=== PATIENT | male | born 1985 | race Caucasian/White ===

== ENCOUNTER 2016-07-28 11:31 | Observation (INO) | payer MEDICAID, SELFPAY ==
[2016-07-28] VITALS (7 sets, daily range): BP systolic 106–126; BP diastolic 51–81; PULSE 50–69; RESP 16–20; TEMP 36.7–36.9; O2SAT 94–99; BMI 23.1; BMI 23.2
--- NOTE | 2016-07-28 12:25 | PCM.HP.STD ---
Problem List (1) Tobacco use Status: Chronic (2) ETOH abuse Status: Chronic (3) Heroin abuse Status: Chronic History of Present Illness Date of Admission: 07/28/16 Chief Complaint: Acute opiate withdrawal. The patient is a 30 y/o M w/ PMHx: Tobacco use, History of EtOH abuse, History of Trauma [place] prior s/p R THR who presents to the [facility] on 07/28/16 w/ noted opiate withdrawal onset starting 07/28/16 AM following last dose 07/27/16 9:00 am with abdominal pain/cramping, generalized body aches and pains, rhinorrhea, piloerection, fatigue, restless leg, sweating, yawning. Patient interested in attaining clean status. He notes having prior to this been clean x 6 months. He notes the suboxone program he had been in was shut down so within 2 days his withdrawal was severe enough to cause him to start heroine again. He notes he had used prior to his injury but been clean following as well but usage of narcotic pain medications started him again on usage pathway. Past Medical History Past Medical History (Chronic Problems): Chronic Problems ETOH abuse (Chronic) Heroin abuse (Chronic) Tobacco use (Chronic) Allergies No Known Allergies Allergy (Verified 03/05/14 10:29) Home Medications: Ambulatory Orders Medication Instructions Recorded No Known/Unobtainable [No Known 07/28/16 Home Medications] Surgical History: - - s/p trauma with sports (motor cross) with R THR. Psychiatric History: No pertinent psych hx Lives: With Family - Lives with his parents. Smoking Status: Current every day smoker - 1 ppd. Tobacco Use: Cigarettes Alcohol: None Drugs: Heroin - *Family History Maternal History Items: No pertinent history Paternal History Items: No pertinent history Review of Systems Constitutional: Reports: Chills, Malaise, Weakness, Fatigue. Denies: Fever, Weight Change HEENT: Denies: Head Aches, Sinus Congestion, Sinus Drainage Cardiovascular: Denies: Chest Pain, Palpitations Respiratory: Denies: Cough, Shortness of breath at rest, Sputum production Gastrointestinal: Reports: Abdominal Pain, Nausea. Denies: Vomiting Genitourinary: Denies: Dysuria Musculoskeletal: Reports: Back Pain, Muscle pain. Denies: Joint Pain, Joint Tenderness Skin: Denies: Rash, Wounds Neurological: Denies: Numbness, Tingling, Focal weakness Psychiatric: Denies: Anxiety, Depression, Homicidal Ideations, Suicidal Ideations Hematologic/ Lymphatic: Denies: Easy Bruising, Easy Bleeding VTE Information - Inpt Only VTE Present on Admission: No VTE Mechan Device Prophylaxis: SCD's VTE Pharm Prophylaxis ordered?: No Reason prophylaxis not ordered:: Treatment Not Indicated Subjective: Seated upright in the bed, notes currently feeling improved s/p 1st suboxone. Objective: Physical Examination: General: awake, alert, oriented x 3 and cooperative, seated upright in bed, symptoms abating status post recent for Suboxone administration. Skin: normal color, turgor, no icterus, cyanosis track vázquez, most recently used site noninfected appearing. HEENT: AT/NC, EOMI, PERRLA, dry MM, no carotid bruits or JVD noted. Lungs: CTA bilaterally, moderate effort, mild decrease BL bases, no rales, ronchi or wheezing. Heart: Regular rate and rhythm; no gallop, rub audible. Abdomen: soft, NTTP, ND, normal BS, + HM. Extremities: no cyanosis, clubbing, or edema. Neurological: patient awake, alert, oriented x 3; cognitive function intact; pupils equally reactive to light and accomodation; cranial nerves II-XII grossly normal, moving all 4 extremities, no focal deficits, strength globally decreased secondary to acute withdrawal. Psychiatric: affect appears mildly anxious, no acute evidence of depressive feelings. - Physical Exam Vital Signs Temp Pulse Resp BP Pulse Ox 98.5 F 50 20 106/62 97 07/28/16 12:06 07/28/16 12:06 07/28/16 12:06 07/28/16 12:06 07/28/16 12:06 Oxygen Delivery Method Room Air Weight: 161 lb 6.054 oz Body Mass Index (BMI) 23.1 Assessment/Plan The patient is a 30 y/o M w/ PMHx: Tobacco use, History of EtOH abuse, History of Trauma [place] prior s/p R THR who presents to the [facility] on 07/28/16 w/ noted opiate withdrawal onset starting 07/28/16 AM following last dose 07/27/16 9:00 am. (1) Acute Opiate Withdrawal: Will admit to [place], obtain routine labs including CBC, CMP, urine for drug screen, urinalysis, serum lipase, routine EKG, will initiate and continue on [facility] service protocol with tapering course of Subutex, as needed Seroquel, Librium, Sinemet, Catapres, Bentyl, Vistaril, IV fluids, IV antiemetics, Tylenol as needed for pain. Once patient clinically improved and completion of taper nearing will plan [facility] assistance for transition to next level of rehabilitation care. HIV, hepatitis pending as not performed prior. (2) Tobacco Abuse: Encouraged cessation, inpatient consultation per RT, NR if desired. (3) EtOH Abuse: Patient notes routine consumption of 3-4 glasses whiskey per day when drinking, currently sober x 1 month he notes. Will maintain on MVI, thiamine and folic acid. Encouraged continued safe sobriety. Will to be cautious place on CIWA in case EtOH sobriety overestimated. CMP pending. Mag, phos pending. (4) DVT Prophylaxis: SCDs, low risk, ambulation.
--- NOTE | 2016-07-28 12:29 | HP.PCM_ITS ---
Problem List (1) Tobacco use Status: Chronic (2) ETOH abuse Status: Chronic (3) Heroin abuse Status: Chronic History of Present Illness Date of Admission: 07/28/16 Chief Complaint: Acute opiate withdrawal. The patient is a 30 y/o M w/ PMHx: Tobacco use, History of EtOH abuse, History of Trauma [place] prior s/p R THR who presents to the [facility] on 07/28/16 w/ noted opiate withdrawal onset starting 07/28/16 AM following last dose 07/27/16 9: 00 am with abdominal pain/cramping, generalized body aches and pains, rhinorrhea , piloerection, fatigue, restless leg, sweating, yawning. Patient interested in attaining clean status. He notes having prior to this been clean x 6 months. He notes the suboxone program he had been in was shut down so within 2 days his withdrawal was severe enough to cause him to start heroine again. He notes he had used prior to his injury but been clean following as well but usage of narcotic pain medications started him again on usage pathway. Past Medical History Past Medical History (Chronic Problems): Chronic Problems ETOH abuse (Chronic) Heroin abuse (Chronic) Tobacco use (Chronic) Allergies No Known Allergies Allergy (Verified 03/05/14 10:29) Home Medications: Ambulatory Orders Medication Instructions Recorded No Known/Unobtainable [No Known 07/28/16 Home Medications] Surgical History: - - s/p trauma with sports (motor cross) with R THR. Psychiatric History: No pertinent psych hx Lives: With Family - Lives with his parents. Smoking Status: Current every day smoker - 1 ppd. Tobacco Use: Cigarettes Alcohol: None Drugs: Heroin - *Family History Maternal History Items: No pertinent history Paternal History Items: No pertinent history Review of Systems Constitutional: Reports: Chills, Malaise, Weakness, Fatigue. Denies: Fever, Weight Change HEENT: Denies: Head Aches, Sinus Congestion, Sinus Drainage Cardiovascular: Denies: Chest Pain, Palpitations Respiratory: Denies: Cough, Shortness of breath at rest, Sputum production Gastrointestinal: Reports: Abdominal Pain, Nausea. Denies: Vomiting Genitourinary: Denies: Dysuria Musculoskeletal: Reports: Back Pain, Muscle pain. Denies: Joint Pain, Joint Tenderness Skin: Denies: Rash, Wounds Neurological: Denies: Numbness, Tingling, Focal weakness Psychiatric: Denies: Anxiety, Depression, Homicidal Ideations, Suicidal Ideations Hematologic/ Lymphatic: Denies: Easy Bruising, Easy Bleeding VTE Information - Inpt Only VTE Present on Admission: No VTE Mechan Device Prophylaxis: SCD's VTE Pharm Prophylaxis ordered?: No Reason prophylaxis not ordered:: Treatment Not Indicated Subjective: Seated upright in the bed, notes currently feeling improved s/p 1st suboxone. Objective: Physical Examination: General: awake, alert, oriented x 3 and cooperative, seated upright in bed, symptoms abating status post recent for Suboxone administration. Skin: normal color, turgor, no icterus, cyanosis track vázquez, most recently used site noninfected appearing. HEENT: AT/NC, EOMI, PERRLA, dry MM, no carotid bruits or JVD noted. Lungs: CTA bilaterally, moderate effort, mild decrease BL bases, no rales, ronchi or wheezing. Heart: Regular rate and rhythm; no gallop, rub audible. Abdomen: soft, NTTP, ND, normal BS, + HM. Extremities: no cyanosis, clubbing, or edema. Neurological: patient awake, alert, oriented x 3; cognitive function intact; pupils equally reactive to light and accomodation; cranial nerves II-XII grossly normal, moving all 4 extremities, no focal deficits, strength globally decreased secondary to acute withdrawal. Psychiatric: affect appears mildly anxious, no acute evidence of depressive feelings. - Physical Exam Vital Signs Temp Pulse Resp BP Pulse Ox 98.5 F 50 20 106/62 97 07/28/16 12:06 07/28/16 12:06 07/28/16 12:06 07/28/16 12:06 07/28/16 12:06 Oxygen Delivery Method Room Air Weight: 161 lb 6.054 oz Body Mass Index (BMI) 23.1 Assessment/Plan The patient is a 30 y/o M w/ PMHx: Tobacco use, History of EtOH abuse, History of Trauma [place] prior s/p R THR who presents to the [facility] on 07/28/16 w/ noted opiate withdrawal onset starting 07/28/16 AM following last dose 07/27/16 9: 00 am. (1) Acute Opiate Withdrawal: Will admit to [place], obtain routine labs including CBC , CMP, urine for drug screen, urinalysis, serum lipase, routine EKG, will initiate and continue on [facility] service protocol with tapering course of Subutex, as needed Seroquel, Librium, Sinemet, Catapres, Bentyl, Vistaril, IV fluids, IV antiemetics, Tylenol as needed for pain. Once patient clinically improved and completion of taper nearing will plan [facility] assistance for transition to next level of rehabilitation care. HIV, hepatitis pending as not performed prior. (2) Tobacco Abuse: Encouraged cessation, inpatient consultation per RT, NR if desired. (3) EtOH Abuse: Patient notes routine consumption of 3-4 glasses whiskey per day when drinking, currently sober x 1 month he notes. Will maintain on MVI, thiamine and folic acid. Encouraged continued safe sobriety. Will to be cautious place on CIWA in case EtOH sobriety overestimated. CMP pending. Mag, phos pending. (4) DVT Prophylaxis: SCDs, low risk, ambulation.
[2016-07-28] MEDS: Ibuprofen 400 MG Tablet 800 MG PO (12:56)
[2016-07-28] MEDS: 0.9% Normal Saline 1,000 ML 125 ML IV (13:02)
[2016-07-28 13:09] LABS: Absolute Lymphocyte Count 1.42 X10^3/ul (0.83-4.51); Absolute Neutrophil Count 7.2 X10^3/uL (2.0-7.7); Basophil# 0.01 X10^3/uL; Basophil% 0.1 % (0-1); Eosinophil# 0.04 X10^3/uL; Eosinophils% 0.4 % (0-5); Hematocrit 44.7 % (40-54); Hemoglobin 15.3 g/dl (13.0-16.5); Lymphocyte # 1.42 X10^3/ul (4.0); Lymphocyte % 15.9 % (19-41); Mean Corp Hgb Conc 34.2 g/gl (32-36); Mean Corpuscular Hgb 30.7 pg (27.0-32.0); Mean Corpuscular Volume 89.8 fL (80-94); Mean Platelet Vol. 8.7 fl (6.2-12.0); Monocyte# 0.25 X10^3/uL; Monocyte% 2.8 % (0-10); Neutrophil % 80.7 % (47-70); POSITIVE COUNT NO; POSITIVE DIFFERENTIAL NO; POSITIVE MORPHOLOGY NO; Platelet Count 270 K/mm3 (150-450); RBC Distribution Width CV 13.2 % (11.6-14.6); RBC Distribution Width SD 43.2 fl (35.1-43.9); Red Blood Count 4.98 M/mm3 (4.6-6.2); White Blood Count 8.9 K/mm3 (4.4-11.0)
[2016-07-28] MEDS: Buprenorphine HCl 2 MG TAB.SUBL SL ×2 (13:10→20:34)
[2016-07-28 13:17] LABS: ALB/GLOB Ratio 0.8 RATIO (0.9-2.4); AST(SGOT) 62 U/L (15-37); Alanine Aminotransfer ALT/SGPT 154 U/L (12-78); Albumin, Serum 3.8 g/dL (3.4-5.0); Alkaline Phosphatase 82 U/L (45-117); Anion Gap 8 (5-15); BUN 12 mg/dL (7-18); BUN/Creat Ratio 15.7 RATIO (10-20); Calcium,Total 9.2 mg/dL (8.5-10.1); Chloride 104 mmol/L (98-107); Creatinine, Serum 0.76 mg/dL (0.70-1.30); EST Glomerular Filtration Rate 127 mL/min (>60); Est Glom Filt Rate - Afr Amer 153 mL/min (>60); Estimated Creatinine Clearance 146.75 ml/min; Globulin 4.5 g/dL (2.3-3.5); Glucose 108 mg/dL (70-110); Potassium 4.2 mmol/L (3.5-5.1); Protein, Total 8.3 g/dL (6.4-8.2); Sodium Level 136 mmol/L (136-145)
[2016-07-28 13:37] LABS: Alcohol, Blood (Medical)-Serum < 3.0 mg/dL
[2016-07-28 13:57] LABS: Magnesium 2.1 mg/dL (1.8-2.4); Phosphorus 2.3 mg/dL (2.5-4.9)
[2016-07-28 14:06] LABS: Amphetamine Urine VISTA NEGATIVE (<1000 ng/mL); Barbiturate Urine VISTA NEGATIVE (< 200 ng/mL); Benzodiazepine Urine VISTA NEGATIVE (< 200 ng/mL); Cocaine Urine VISTA NEGATIVE (< 300 ng/mL); Ecstacy Urine VISTA NEGATIVE (< 500 ng/mL); Methadone Urine VISTA NEGATIVE (< 300 ng/mL); PCP Urine VISTA NEGATIVE (< 25 ng/mL); THC Urine VISTA POSITIVE (< 50 ng/mL); Vista UDS pH Range 7
[2016-07-28] MEDS: Carbidopa/Levodopa 25/100 Tablet PO (14:29)
[2016-07-28] MEDS: chlordiazePOXIDE 25 MG Capsule PO ×3 (14:29→20:57)
[2016-07-28] MEDS: 0.9% NaCl Peripheral Flush Adult/Peds IV (14:30)
[2016-07-28] MEDS: LORazepam 2 MG/ML Syringe IV (14:30)
[2016-07-28] MEDS: Methocarbamol 750 MG Tablet PO (14:30)
[2016-07-28] MEDS: Ondansetron ODT 4 MG Tablet PO (14:30)
--- NOTE | 2016-07-28 15:43 | CHAPLAIN ---
patient was recently admitted and getting settled into room and prepared for medications; pt is welcoming and identifies why he is here and that he has 'done this before'; pt is aware of medical stabilization routine; pt reports that he has lots of support from family and friends and that he goes to [facility] each Monday; pt says that he receives good help from these resources but struggles still with addiction; pt says that he is feeling warm and having a hard time talking now due to a dry mouth; pt is open to visits in the future
[2016-07-28] MEDS: Acetaminophen 325 MG Tablet 650 MG PO (15:54)
[2016-07-28] MEDS: traZODone 50 MG Tablet PO (20:57)
[2016-07-28] MEDS: LORazepam 1 MG Tablet 2 MG PO (20:57)
[2016-07-29] MEDS: QUEtiapine 25 MG Tablet PO (00:06)
[2016-07-29] MEDS: Carbidopa/Levodopa 25/100 Tablet PO ×2 (00:06→16:53)
[2016-07-29 02:13] VITALS: BP 116/68; PULSE 47; RESP 16; TEMP 36.7
[2016-07-29] MEDS: chlordiazePOXIDE 25 MG Capsule PO ×3 (02:16→10:08)
[2016-07-29] MEDS: Methocarbamol 750 MG Tablet PO ×3 (02:21→16:53)
[2016-07-29] MEDS: cloNIDine HCl 0.1 MG Tablet PO (02:21)
[2016-07-29] MEDS: Buprenorphine HCl 2 MG TAB.SUBL SL ×3 (04:18→20:16)
--- NOTE | 2016-07-29 06:46 | PCM.PN.HOSP ---
Subjective: Patient overnight with no acute events however did note difficulty sleeping and does admit now to cannabis usage each night for sleep. Discussed option and amenable to increasing trazodone nightly as needed dose to assist with this. He notes other symptoms are currently controlled and eager to continue with clean status. Patient denies fevers, chills, nausea, emesis, abdominal pain, chest pain or dyspnea. Objective: Physical Examination: General: awake, alert, oriented x 3 and cooperative, seated upright in bed, NAD. Skin: normal color, turgor, no icterus, cyanosis track vázquez, most recently used site noninfected appearing. HEENT: AT/NC, EOMI, PERRLA, improved MMM. Lungs: CTA bilaterally, moderate effort, mild decrease BL bases, no rales, ronchi or wheezing. Heart: Regular rate and rhythm; no gallop, rub audible. Abdomen: soft, NTTP, ND, normal BS. Extremities: no cyanosis, clubbing, or edema. Neurological: patient awake, alert, oriented x 3; cognitive function intact; pupils equally reactive to light and accomodation; cranial nerves II-XII grossly normal, moving all 4 extremities, no focal deficits, strength mildly globally decreased secondary to acute withdrawal. Psychiatric: affect appears improved, calm, no acute evidence of depressive feelings. Vitals/I&O's: Vital Signs Temp Pulse Resp BP Pulse Ox 98.0 F 47 16 116/68 99 07/29/16 02:13 07/29/16 02:13 07/29/16 02:13 07/29/16 02:13 07/28/16 20:36 Oxygen Delivery Method Room Air Weight: 161 lb 6.054 oz Body Mass Index (BMI) 23.1 Intake and Output for Last 24 Hours 07/27/16 07/28/16 07/29/16 23:59 23:59 23:59 Intake Total 1157 1488 Output Total 400 Balance 1157 1088 Laboratory Results 07/28/16 12:40: Urine Opiates Screen POSITIVE H, Urine Methadone Screen NEGATIVE, Ur Barbiturates Screen NEGATIVE, Ur Phencyclidine Scrn NEGATIVE, Ur Amphetamines Screen NEGATIVE, U Methamphetamin-MDMA NEGATIVE, U Benzodiazepines Scrn NEGATIVE, Urine Cocaine Screen NEGATIVE, U Cannabinoids Screen POSITIVE H, Ur Drug Screen Comment 07/28/16 12:45: WBC 8.9, RBC 4.98, Hgb 15.3, Hct 44.7, MCV 89.8, MCH 30.7, MCHC 34.2, RDW 13.2, RDW Differential 43.2, Plt Count 270, MPV 8.7, Immature Gran % (Auto) 0.100, Neut % (Auto) 80.7 H, Lymph % (Auto) 15.9 L, [place] % (Auto) 2.8, Eos % (Auto) 0.4, Baso % (Auto) 0.1, Absolute Neuts (auto) 7.2, Absolute Lymphs (auto) 1.42, Total Counted Not Reportable 07/28/16 12:45: Sodium 136, Potassium 4.2, Chloride 104, Carbon Dioxide 24.0, Anion Gap 8, BUN 12, Creatinine 0.76, Estim Creat Clear Calc 146.75, Est GFR (MDRD) Af Amer 153, Est GFR (MDRD) Non-Af 127, BUN/Creatinine Ratio 15.7, Glucose 108, Calcium 9.2, Total Bilirubin 0.50, AST 62 H, ALT 154 H, Alkaline Phosphatase 82, Total Protein 8.3 H, Albumin 3.8, Globulin 4.5 H, Albumin/Globulin Ratio 0.8 L 07/28/16 12:45: Ethyl Alcohol < 3.0 07/28/16 12:45: Hepatitis A IgM Ab Pending, Hepatitis A Ab Total Pending, Hep Bs Antigen Pending, Hep B Core Total Ab Pending, Hep B Core IgM Ab Pending, Hepatitis C Comment Pending, HIV 1&2 Ag/Ab, 4th Gen Pending 07/28/16 12:45: Phosphorus 2.3 L, Magnesium 2.1 Current Medications Acetaminophen (Tylenol) 650 mg PO Q4H PRN PRN PRN Reason: Temp>99.1F Last Admin: 07/28/16 15:54 Dose: 650 mg Al Hydroxide/Mg Hydroxide (Mylanta Ii) 30 ml PO Q6H PRN PRN PRN Reason: dyspesia Bisacodyl (Dulcolax) 10 mg RECTAL DAILY PRN PRN Reason: Constipation Buprenorphine HCl (Buprenorphine Hcl) 4 mg SL Q8H SANDRA PRN Reason: Taper Stop: 07/31/16 16:29 Last Admin: 07/29/16 04:18 Dose: 4 mg Carbidopa/Levodopa (Sinemet) 1 tablet PO Q8H PRN PRN PRN Reason: RESTLESSNESS Last Admin: 07/29/16 00:06 Dose: 1 tablet Chlordiazepoxide (Librium) 25 mg PO Q4 SANDRA Stop: 07/29/16 10:01 Last Admin: 07/29/16 05:22 Dose: 25 mg Chlordiazepoxide (Librium) 25 mg PO Q6H PRN PRN PRN Reason: Mod-Sev Anxiety (score 2-3/3) Clonidine (Catapres) 0.1 mg PO Q2H PRN PRN Reason: Hot/Cold Sweats or Anxiety Last Admin: 07/29/16 02:21 Dose: 0.1 mg Dicyclomine HCl (Bentyl) 20 mg PO Q6H PRN PRN PRN Reason: Abdomnial Discomfort Folic Acid (Folic Acid) 1 mg PO DAILY@0800 [facility] Hydroxyzine Pamoate (Vistaril) 50 mg PO Q6H PRN PRN PRN Reason: Mild Anxiety (score 1/3) Ibuprofen (Motrin) 800 mg PO Q8H PRN PRN PRN Reason: Mild-Moderate Pain (1-5/10) Last Admin: 07/28/16 12:56 Dose: 800 mg Loperamide HCl (Imodium) 2 - 4 mg PO UD PRN PRN Reason: LOOSE STOOLS Lorazepam (Ativan) 2 mg PO Q2H PRN PRN; Protocol PRN Reason: CIWA score > 8 but <15 Last Admin: 07/28/16 20:57 Dose: 2 mg Lorazepam (Ativan) 2 mg PO UD PRN; Protocol PRN Reason: CIWA score >/=15. Lorazepam (Ativan) 2 mg IV Q2H PRN PRN; Protocol PRN Reason: CIWA score > 8 but <15 Last Admin: 07/28/16 14:30 Dose: 2 mg Lorazepam (Ativan) 2 mg IV UD PRN; Protocol PRN Reason: CIWA score >/=15. Methocarbamol (Methocarbamol) 750 mg PO 4X/DAY PRN PRN Reason: Muscle Aches Last Admin: 07/29/16 02:21 Dose: 750 mg Multivitamins/Minerals (Multivitamin With Minerals) [facility] Nicotine (Nicoderm Cq (Pbkc)) 21 mg TRANSDERM. DAILY SANDRA Ondansetron HCl (Zofran Odt) 4 mg PO Q6H PRN PRN PRN Reason: NAUSEA Last Admin: 07/28/16 14:30 Dose: 4 mg Quetiapine Fumarate (Seroquel) 25 mg PO Q6H PRN PRN PRN Reason: Moderate Anxiety (score 2/3) Last Admin: 07/29/16 00:06 Dose: 25 mg Senna (Senokot) 1 tablet PO QHS PRN PRN Reason: Constipation Sodium Chloride () 5 - 15 ml IV UD PRN PRN Reason: SALINE FLUSH Last Admin: 07/28/16 14:30 Dose: 10 ml Thiamine HCl (Vitamin B1) 100 mg PO DAILYCM SANDRA Trazodone HCl (Desyrel) 50 mg PO QHS SANDRA Last Admin: 07/28/16 20:57 Dose: 50 mg Assessment/Plan The patient is a 30 y/o M w/ PMHx: Tobacco use, History of EtOH abuse, History of Trauma [place] prior s/p R THR who presents to the [facility] on 07/28/16 w/ noted opiate withdrawal onset starting 07/28/16 AM following last dose 07/27/16 9:00 am. (1) Acute Opiate Withdrawal: Admitted to [place], obtained routine labs w/ remarkable noted CMP w/ AST/ALT 62/154, UDS + opiates and cannabis, EtOH <3. Patient initiated and continue on [facility] service protocol with tapering course of Subutex, as needed Seroquel, Librium, Sinemet, Catapres, Bentyl, Vistaril, IV fluids, IV antiemetics, Tylenol as needed for pain. Once patient clinically improved and completion of taper nearing will plan [facility] assistance for transition to next level of rehabilitation care. HIV, hepatitis pending as not performed prior. (2) Tobacco Abuse: Encouraged cessation, inpatient consultation per RT, NR if desired. (3) EtOH Abuse, Polysubstance Abuse: Patient notes routine consumption of 3-4 glasses whiskey per day when drinking, currently sober x 1 month he notes. Will maintain on MVI, thiamine and folic acid. Encouraged continued safe sobriety. Placed on CIWA in case EtOH sobriety overestimated. CMP w/ AST/ALT 62/154, UDS + opiates and cannabis, EtOH <3.0. Discussed cannabis usage at nights and will increase q HS PRN trazodone. (4) DVT Prophylaxis: SCDs, low risk, ambulation.
[2016-07-29 07:07] LABS: HEPATITIS B SURFACE AG Negative (Negative); Hepatitis A AB, Total Negative (Negative); Hepatitis A IgM Antibody Negative (Negative); Hepatitis B Core AB IgM Negative (Negative); Hepatitis B Core Ab Total Negative (Negative); Hepatitis C Ab >11.0 s/co ratio (0.0-0.9)
[2016-07-29 07:36] VITALS: BP 112/77; PULSE 69; RESP 16; TEMP 35.9; O2SAT 99
[2016-07-29] MEDS: Multivitamins,Ther W-Minerals Tablet 1 TABLET PO (07:42)
[2016-07-29] MEDS: Folic Acid 1 MG Tablet PO (07:42)
[2016-07-29] MEDS: Thiamine Hydrochloride 100 MG Tablet PO (07:44)
[2016-07-29] MEDS: Ibuprofen 400 MG Tablet 800 MG PO ×2 (07:51→21:44)
[2016-07-29 08:25] LABS: HIV 1/0/2 SCREEN 4TH GEN Non Reactive (Non Reactive); Hep B Surface Antibodies Reactive (.)
[2016-07-29 10:03] VITALS: BP 114/77; PULSE 54; RESP 14; TEMP 36.5; O2SAT 100
[2016-07-29 12:50] VITALS: BP 108/60; PULSE 46; RESP 16; TEMP 36.1; O2SAT 100
[2016-07-29] MEDS: Acetaminophen 325 MG Tablet 650 MG PO (13:01)
--- NOTE | 2016-07-29 14:36 | CHAPLAIN ---
brief follow up; pt said he is better and slept through the night and into morning time; pt repeats he has great [facility] support and goes to a Recovery meeting each Monday at [facility]; pt looking forward to medical monthly shots for strength to get off drugs; pt open to prayer;
[2016-07-29 17:00] VITALS: BP 136/72; PULSE 66; RESP 16; TEMP 37.2; O2SAT 98
[2016-07-29 19:54] VITALS: BP 134/66; PULSE 63; RESP 16; TEMP 36.7; O2SAT 96
[2016-07-30] MEDS: Buprenorphine HCl 2 MG TAB.SUBL SL ×2 (05:15→12:54)
[2016-07-30 05:16] VITALS: BP 124/79; PULSE 46; RESP 16; TEMP 36.2; O2SAT 97
--- NOTE | 2016-07-30 06:45 | PN_ITS ---
Subjective: Patient with no acute events overnight per self and per nursing report. This morning he did note he was eager to go home today but upon discussion and need for 2 additional dosings of Subutex willing to remain until tomorrow morning. Symptoms currently well controlled and states this has been a much smoother rehabilitation and withdrawal than prior. Patient denies fevers, chills, nausea , emesis, abdominal pain, chest pain or dyspnea. Objective: Physical Examination: General: awake, alert, oriented x 3 and cooperative, seated upright in bed, NAD. Skin: normal color, turgor, no icterus, cyanosis track vázquez, most recently used site noninfected appearing. HEENT: AT/NC, EOMI, PERRLA, improved MMM. Lungs: CTA bilaterally, moderate effort, mild decrease BL bases, no rales, ronchi or wheezing. Heart: Regular rate and rhythm; no gallop, rub audible. Abdomen: soft, NTTP, ND, normal BS. Extremities: no cyanosis, clubbing, or edema. Neurological: patient awake, alert, oriented x 3; cognitive function intact; pupils equally reactive to light and accomodation; cranial nerves II-XII grossly normal, moving all 4 extremities, no focal deficits, strength improved, baseline. Psychiatric: affect appears normal, no acute evidence of depressive feelings. Vitals/I&O's: Vital Signs Temp Pulse Resp BP Pulse Ox 97.1 F 46 16 124/79 97 07/30/16 05:16 07/30/16 05:16 07/30/16 05:16 07/30/16 05:16 07/30/16 05:16 Oxygen Delivery Method Room Air Weight: 161 lb 6.054 oz Body Mass Index (BMI) 23.1 Intake and Output for Last 24 Hours 07/28/16 07/29/16 07/30/16 23:59 23:59 23:59 Intake Total 1157 2628 Output Total 2100 550 Balance 1157 528 -550 Laboratory Results 07/28/16 12:45: Hepatitis A IgM Ab Negative, Hepatitis A Ab Total Negative, Hep Bs Antigen Negative, Hep B Core Total Ab Negative, Hep B Core IgM Ab Negative, Hepatitis C Ab Confirm >11.0 H, Hepatitis C Comment Not Reportable, HIV 1&2 Ag/ Ab, 4th Gen Non Reactive Current Medications Acetaminophen (Tylenol) 650 mg PO Q4H PRN PRN PRN Reason: Temp>99.1F Last Admin: 07/29/16 13:01 Dose: 650 mg Al Hydroxide/Mg Hydroxide (Mylanta Ii) 30 ml PO Q6H PRN PRN PRN Reason: dyspesia Bisacodyl (Dulcolax) 10 mg RECTAL DAILY PRN PRN Reason: Constipation Buprenorphine HCl (Buprenorphine Hcl) 2 mg SL Q12H SANDRA PRN Reason: Taper Stop: 07/31/16 16:29 Last Admin: 07/30/16 05:15 Dose: 2 mg Carbidopa/Levodopa (Sinemet) 1 tablet PO Q8H PRN PRN PRN Reason: RESTLESSNESS Last Admin: 07/29/16 16:53 Dose: 1 tablet Chlordiazepoxide (Librium) 25 mg PO Q6H PRN PRN PRN Reason: Mod-Sev Anxiety (score 2-3/3) Clonidine (Catapres) 0.1 mg PO Q2H PRN PRN Reason: Hot/Cold Sweats or Anxiety Last Admin: 07/29/16 02:21 Dose: 0.1 mg Dicyclomine HCl (Bentyl) 20 mg PO Q6H PRN PRN PRN Reason: Abdomnial Discomfort Folic Acid (Folic Acid) 1 mg PO DAILY@0800 SANDRA Last Admin: 07/29/16 07:42 Dose: 1 mg Hydroxyzine Pamoate (Vistaril) 50 mg PO Q6H PRN PRN PRN Reason: Mild Anxiety (score 1/3) Last Admin: 07/29/16 16:53 Dose: 50 mg Ibuprofen (Motrin) 800 mg PO Q8H PRN PRN PRN Reason: Mild-Moderate Pain (1-5/10) Last Admin: 07/29/16 21:44 Dose: 800 mg Loperamide HCl (Imodium) 2 - 4 mg PO UD PRN PRN Reason: LOOSE STOOLS Lorazepam (Ativan) 2 mg PO Q2H PRN PRN; Protocol PRN Reason: CIWA score > 8 but <15 Last Admin: 07/28/16 20:57 Dose: 2 mg Lorazepam (Ativan) 2 mg PO UD PRN; Protocol PRN Reason: CIWA score >/=15. Lorazepam (Ativan) 2 mg IV Q2H PRN PRN; Protocol PRN Reason: CIWA score > 8 but <15 Last Admin: 07/28/16 14:30 Dose: 2 mg Lorazepam (Ativan) 2 mg IV UD PRN; Protocol PRN Reason: CIWA score >/=15. Methocarbamol (Methocarbamol) 750 mg PO 4X/DAY PRN PRN Reason: Muscle Aches Last Admin: 07/29/16 16:53 Dose: 750 mg [facility]ivitamins/Minerals ([facility]itamin With Minerals) [facility] Last Admin: 07/29/16 07:42 Dose: 1 tablet Nicotine (Nicoderm Cq (Pbkc)) 21 mg TRANSDERM. DAILY [facility] Last Admin: 07/29/16 10:07 Dose: 21 mg Ondansetron HCl (Zofran Odt) 4 mg PO Q6H PRN PRN PRN Reason: NAUSEA Last Admin: 07/28/16 14:30 Dose: 4 mg Quetiapine Fumarate (Seroquel) 25 mg PO Q6H PRN PRN PRN Reason: Moderate Anxiety (score 2/3) Last Admin: 07/29/16 00:06 Dose: 25 mg Senna (Senokot) 1 tablet PO QHS PRN PRN Reason: Constipation Sodium Chloride () 5 - 15 ml IV UD PRN PRN Reason: SALINE FLUSH Last Admin: 07/28/16 14:30 Dose: 10 ml Thiamine HCl ([facility]itamin B1) [facility] Last Admin: 07/29/16 07:44 Dose: 100 mg Trazodone HCl (Desyrel) 100 mg PO QHS [facility] Last Admin: 07/29/16 21:44 Dose: 100 mg Assessment/Plan The patient is a 30 y/o M w/ PMHx: Tobacco use, History of EtOH abuse, History of Trauma [place] prior s/p R THR who presents to the [facility] on 07/28/16 w/ noted opiate withdrawal onset starting 07/28/16 AM following last dose 07/27/16 9: 00 am. (1) Acute Opiate Withdrawal: Admitted to [place], obtained routine labs w/ remarkable noted CMP w/ AST/ALT 62/154, UDS + opiates and cannabis, EtOH <3. Patient initiated and continue on [facility] service protocol with tapering course of Subutex, as needed Seroquel, Librium, Sinemet, Catapres, Bentyl, Vistaril, IV fluids, IV antiemetics, Tylenol as needed for pain. Once patient clinically improved and completion of taper nearing will plan [facility] assistance for transition to next level of rehabilitation care. Planned discharge 07/31/ AM, needs two additional doses subutex to complete regimen, doing well. (2) Tobacco Abuse: Encouraged cessation, inpatient consultation per RT, NR if desired. (3) EtOH Abuse, Polysubstance Abuse: Patient notes routine consumption of 3-4 glasses whiskey per day when drinking, currently sober x 1 month he notes. Will maintain on MVI, thiamine and folic acid. Encouraged continued safe sobriety. Placed on CIWA in case EtOH sobriety overestimated. CMP w/ AST/ALT 62/154, UDS + opiates and cannabis, EtOH <3.0. Discussed cannabis usage at nights and increased q HS PRN trazodone. (4) New Dx Hepatitis C: Hepatitis Panel w/ + core Ab. Discussed hepatitis panel , not candidate for hep C treatment currently as needs to be clean, sober x 6 months, documented attendance NA or AA meetings, counseling and ongoing negative drug screens. Once appropriate GI, ID to initiate. HIV negative. (5) DVT Prophylaxis: SCDs, low risk, ambulation.
[2016-07-30 08:31] VITALS: BP 123/72; PULSE 50; RESP 16; TEMP 36.7; O2SAT 100
[2016-07-30 08:32] VITALS: BP 123/72; PULSE 50; RESP 16; TEMP 36.7
--- NOTE | 2016-07-30 08:34 | PCM.DC ---
- Discharge Diagnoses Current Active Problems: Current Active and Chronic Problems ETOH abuse (Chronic) Heroin abuse (Chronic) Tobacco use (Chronic) (1) Acute Opiate Withdrawal (2) Tobacco Abuse (3) EtOH Abuse, Polysubstance Abuse (4) New Dx Hepatitis C You will use the following diet at home:: No restrictions Your food should be the consistency of: Regular Your liquids should be the consistency of: Regular/Thin Discharge Activity: Return to Normal Activity May resume sexual activity in: No Restrictions Weight Bearing Status: Weight bearing as sabina Call your doctor if you observe: Fever of 101 or Higher, Inability to urinate, Inability to have a bowel movement, Shortness of breath, Dizziness, Fainting spells, Chest pain, Uncontrolled pain Instructions: Understanding Heroin Abuse and Addiction, Treating Heroin Addiction, Understanding Marijuana Abuse, Alcoholism: Myths and Facts, Understanding Alcoholism, The Impact of Alcoholism, Alcoholism: How to be Part of the Solution, Alcoholism: Resources for Family and Friends, Alcoholism: Getting Help, Alcohol Addiction, Signs of Addiction: Social Use, Discharge Instructions for Hepatitis C, Hepatitis C: Protecting Your Liver Allergies/Adverse Reactions: Allergies No Known Allergies Allergy (Verified 03/05/14 10:29) Medications to take at Discharge Folic Acid 1 mg PO DAILY@0800 #30 tablet 07/30/16 Multivitamins,Ther W-Minerals [Multivitamin With Minerals] 1 tablet PO DAILYCM #30 tablet 07/30/16 Nicotine [Nicoderm Cq] 21 mg TRANSDERM. DAILY #14 patch 07/30/16 Thiamine Hydrochloride [Vitamin B1] 100 mg PO DAILYCM #30 tablet 07/30/16 The following prescriptions were given: Folic Acid 1 mg PO DAILY@0800 #30 tablet Multivitamins,Ther W-Minerals [Multivitamin With Minerals] 1 tablet PO DAILYCM #30 tablet Nicotine [Nicoderm Cq] 21 mg TRANSDERM. DAILY #14 patch Thiamine Hydrochloride [Vitamin B1] 100 mg PO DAILYCM #30 tablet Primary Care Physician: Care Physician,No Primary [Primary Care Provider] - Please follow up with your Primary Care Physician in: Recommend strongly establishing with primary care for follow-up, evaluation Please Follow Up With: [facility] When: Please continue w/ [facility] Rehabilitation Plan. Proposed Discharge Date: 07/31/16
--- NOTE | 2016-07-30 08:37 | DCINST_ITS ---
- Discharge Diagnoses Current Active Problems: Current Active and Chronic Problems ETOH abuse (Chronic) Heroin abuse (Chronic) Tobacco use (Chronic) (1) Acute Opiate Withdrawal (2) Tobacco Abuse (3) EtOH Abuse, Polysubstance Abuse (4) New Dx Hepatitis C You will use the following diet at home:: No restrictions Your food should be the consistency of: Regular Your liquids should be the consistency of: Regular/Thin Discharge Activity: Return to Normal Activity May resume sexual activity in: No Restrictions Weight Bearing Status: Weight bearing as sabina Call your doctor if you observe: Fever of 101 or Higher, Inability to urinate, Inability to have a bowel movement, Shortness of breath, Dizziness, Fainting spells, Chest pain, Uncontrolled pain Instructions: Understanding Heroin Abuse and Addiction, Treating Heroin Addiction, Understanding Marijuana Abuse, Alcoholism: Myths and Facts, Understanding Alcoholism, The Impact of Alcoholism, Alcoholism: How to be Part of the Solution, Alcoholism: Resources for Family and Friends, Alcoholism: Getting Help, Alcohol Addiction, Signs of Addiction: Social Use, Discharge Instructions for Hepatitis C, Hepatitis C: Protecting Your Liver Allergies/Adverse Reactions: Allergies No Known Allergies Allergy (Verified 03/05/14 10:29) Medications to take at Discharge Folic Acid 1 mg PO DAILY@0800 #30 tablet 07/30/16 Multivitamins,Ther W-Minerals [Multivitamin With Minerals] 1 tablet PO DAILYCM # 30 tablet 07/30/16 Nicotine [Nicoderm Cq] 21 mg TRANSDERM. DAILY #14 patch 07/30/16 Thiamine Hydrochloride [Vitamin B1] 100 mg PO DAILYCM #30 tablet 07/30/16 The following prescriptions were given: Folic Acid 1 mg PO DAILY@0800 #30 tablet Multivitamins,Ther W-Minerals [Multivitamin With Minerals] 1 tablet PO DAILYCM # 30 tablet Nicotine [Nicoderm Cq] 21 mg TRANSDERM. DAILY #14 patch Thiamine Hydrochloride [Vitamin B1] 100 mg PO DAILYCM #30 tablet Primary Care Physician: Care Physician,No Primary [Primary Care Provider] - Please follow up with your Primary Care Physician in: Recommend strongly establishing with primary care for follow-up, evaluation Please Follow Up With: [facility] When: Please continue w/ [facility] Rehabilitation Plan. Proposed Discharge Date: 07/31/16
[2016-07-30] MEDS: Thiamine Hydrochloride 100 MG Tablet PO (08:39)
[2016-07-30] MEDS: Folic Acid 1 MG Tablet PO (08:39)
[2016-07-30] MEDS: Multivitamins,Ther W-Minerals Tablet 1 TABLET PO (08:39)
--- NOTE | 2016-07-30 12:13 | PCM.DC.SUM ---
Discharge Date and Diagnosis Date of Admission: 07/28/16 Date of Discharge: 07/30/16 - Primary Discharge Diagnosis (1) Acute Opiate Withdrawal (2) Tobacco Abuse (3) EtOH Abuse, Polysubstance Abuse (4) New Dx Hepatitis C - Secondary Discharge Diagnosis Chronic Problems ETOH abuse (Chronic) Heroin abuse (Chronic) Tobacco use (Chronic) Hospital Course and Treatment Operations: None Procedures: None Summary of Care Provided: The patient is a 30 y/o M w/ PMHx: Tobacco use, History of EtOH abuse, History of Trauma [place] prior s/p R THR who presented to the [facility] on 07/28/16 w/ noted opiate withdrawal onset starting 07/28/16 AM following last dose 07/27/16 9:00 am. Admitted to [place], obtained routine labs w/ remarkable noted CMP w/ AST/ALT 62/154, UDS + opiates and cannabis, EtOH <3. Patient initiated and continue on [facility] service protocol with tapering course of Subutex, as needed Seroquel, Librium, Sinemet, Catapres, Bentyl, Vistaril, IV fluids, IV antiemetics, Tylenol as needed for pain. Once patient clinically improved and completion of taper nearing will plan [facility] assistance for transition to next level of rehabilitation care. Planned discharge 07/31/16 AM, needed two additional doses subutex to complete regimen, however, eager for discharge and despite medical recommendation decision to leave, given doing well discharged to home, administered 1 additional dose subutex prior to discharge. Encouraged tobacco cessation, inpatient consultation per RT, NR rx. Encouraged continued safe sobriety, discharged w/ MVI, thiamine, folic acid but notes last drink 1 month prior. Hepatitis Panel w/ + core Ab. Discussed hepatitis panel, not candidate for hep C treatment currently as needs to be clean, sober x 6 months, documented attendance NA or AA meetings, counseling and ongoing negative drug screens. Once appropriate GI, ID to initiate. HIV negative. Discharge Activity: Return to Normal Activity May resume sexual activity in: No Restrictions Weight Bearing Status: Weight bearing as sabina Call your doctor if you observe: Fever of 101 or Higher, Inability to urinate, Inability to have a bowel movement, Shortness of breath, Dizziness, Fainting spells, Chest pain, Uncontrolled pain Home Medications: Medications to take at Discharge Folic Acid 1 mg PO DAILY@0800 #30 tablet 07/30/16 Multivitamins,Ther W-Minerals [Multivitamin With Minerals] 1 tablet PO DAILYCM #30 tablet 07/30/16 Nicotine [Nicoderm Cq] 21 mg TRANSDERM. DAILY #14 patch 07/30/16 Thiamine Hydrochloride [Vitamin B1] 100 mg PO DAILYCM #30 tablet 07/30/16 Following Prescrptions Were Given to Patient: Folic Acid 1 mg PO DAILY@0800 #30 tablet Multivitamins,Ther W-Minerals [Multivitamin With Minerals] 1 tablet PO DAILYCM #30 tablet Nicotine [Nicoderm Cq] 21 mg TRANSDERM. DAILY #14 patch Thiamine Hydrochloride [Vitamin B1] 100 mg PO DAILYCM #30 tablet Primary Care Physician: Care Physician,No Primary [Primary Care Provider] - Please follow up with your Primary Care Physician in: Recommend strongly establishing with primary care for follow-up, evaluation Please Follow Up With: [facility] When: Please continue w/ [facility] Rehabilitation Plan. Patient Instructions: Understanding Alcoholism, Alcoholism: Myths and Facts, The Impact of Alcoholism, Alcoholism: How to be Part of the Solution, Alcoholism: Resources for Family and Friends, Alcoholism: Getting Help, Alcohol Addiction, Signs of Addiction: Social Use, Understanding Heroin Abuse and Addiction, Treating Heroin Addiction, Understanding Marijuana Abuse, Discharge Instructions for Hepatitis C, Hepatitis C: Protecting Your Liver Disposition: Home Minutes spent on discharge:: 35 Patient Condition:: Stable Meaningful Use Info Meaningful Use Diagnoses (Choose all that apply): None applicable
--- NOTE | 2016-07-30 12:16 | DS.PCM_ITS ---
Discharge Date and Diagnosis Date of Admission: 07/28/16 Date of Discharge: 07/30/16 - Primary Discharge Diagnosis (1) Acute Opiate Withdrawal (2) Tobacco Abuse (3) EtOH Abuse, Polysubstance Abuse (4) New Dx Hepatitis C - Secondary Discharge Diagnosis Chronic Problems ETOH abuse (Chronic) Heroin abuse (Chronic) Tobacco use (Chronic) Hospital Course and Treatment Operations: None Procedures: None Summary of Care Provided: The patient is a 30 y/o M w/ PMHx: Tobacco use, History of EtOH abuse, History of Trauma [place] prior s/p R THR who presented to the [facility] on 07/28/16 w/ noted opiate withdrawal onset starting 07/28/16 AM following last dose 07/27/16 9: 00 am. Admitted to [place], obtained routine labs w/ remarkable noted CMP w/ AST/ALT 62/154, UDS + opiates and cannabis, EtOH <3. Patient initiated and continue on [facility] service protocol with tapering course of Subutex, as needed Seroquel , Librium, Sinemet, Catapres, Bentyl, Vistaril, IV fluids, IV antiemetics, Tylenol as needed for pain. Once patient clinically improved and completion of taper nearing will plan [facility] assistance for transition to next level of rehabilitation care. Planned discharge 07/31/16 AM, needed two additional doses subutex to complete regimen, however, eager for discharge and despite medical recommendation decision to leave, given doing well discharged to home, administered 1 additional dose subutex prior to discharge. Encouraged tobacco cessation, inpatient consultation per RT, NR rx. Encouraged continued safe sobriety, discharged w/ MVI, thiamine, folic acid but notes last drink 1 month prior. Hepatitis Panel w/ + core Ab. Discussed hepatitis panel, not candidate for hep C treatment currently as needs to be clean, sober x 6 months, documented attendance NA or AA meetings, counseling and ongoing negative drug screens. Once appropriate GI, ID to initiate. HIV negative. Discharge Activity: Return to Normal Activity May resume sexual activity in: No Restrictions Weight Bearing Status: Weight bearing as sabina Call your doctor if you observe: Fever of 101 or Higher, Inability to urinate, Inability to have a bowel movement, Shortness of breath, Dizziness, Fainting spells, Chest pain, Uncontrolled pain Home Medications: Medications to take at Discharge Folic Acid 1 mg PO DAILY@0800 #30 tablet 07/30/16 Multivitamins,Ther W-Minerals [Multivitamin With Minerals] 1 tablet PO DAILYCM # 30 tablet 07/30/16 Nicotine [Nicoderm Cq] 21 mg TRANSDERM. DAILY #14 patch 07/30/16 Thiamine Hydrochloride [Vitamin B1] 100 mg PO DAILYCM #30 tablet 07/30/16 Following Prescrptions Were Given to Patient: Folic Acid 1 mg PO DAILY@0800 #30 tablet Multivitamins,Ther W-Minerals [Multivitamin With Minerals] 1 tablet PO DAILYCM # 30 tablet Nicotine [Nicoderm Cq] 21 mg TRANSDERM. DAILY #14 patch Thiamine Hydrochloride [Vitamin B1] 100 mg PO DAILYCM #30 tablet Primary Care Physician: Care Physician,No Primary [Primary Care Provider] - Please follow up with your Primary Care Physician in: Recommend strongly establishing with primary care for follow-up, evaluation Please Follow Up With: [facility] When: Please continue w/ [facility] Rehabilitation Plan. Patient Instructions: Understanding Alcoholism, Alcoholism: Myths and Facts, The Impact of Alcoholism, Alcoholism: How to be Part of the Solution, Alcoholism : Resources for Family and Friends, Alcoholism: Getting Help, Alcohol Addiction , Signs of Addiction: Social Use, Understanding Heroin Abuse and Addiction, Treating Heroin Addiction, Understanding Marijuana Abuse, Discharge Instructions for Hepatitis C, Hepatitis C: Protecting Your Liver Disposition: Home Minutes spent on discharge:: 35 Patient Condition:: Stable Meaningful Use Info Meaningful Use Diagnoses (Choose all that apply): None applicable
[2016-07-30 12:30] VITALS: BP 138/87; PULSE 59; RESP 16; TEMP 36.9
[2016-07-30 12:37] VITALS: BP 138/87; PULSE 59; RESP 16; TEMP 36.9; O2SAT 100
== END 2016-07-30 13:00 | disposition home or self-care (01) | DRG 773 ==
LOC: MS2 04-03 07:40
PROVIDERS: Admitting Provider Family Medicine; Visit Provider Family Medicine
DX: F11.23 Opioid dependence with withdrawal (principal); F17.210 Nicotine dependence, cigarettes, uncomplicated; Z96.641 Presence of right artificial hip joint; F10.10 Alcohol abuse, uncomplicated; B19.20 Unspecified viral hepatitis C without hepatic coma; F19.10 Other psychoactive substance abuse, uncomplicated
CPT/HCPCS: 80053; 80307; 80320; 83735; 84100; 85025; 86703; 86704; 86705; 86706; 86708; 86709; 86803; 87340; 99218; 99406; J7030; A4216; G0378; G0379; G0480